=== PATIENT | female | born 1970 | race Caucasian/White ===

== ENCOUNTER → 2019-03-10 | Outpatient (REF) | payer OTHER ==
[2019-03-11 08:44] LABS: H PYLORI QUALITATIVE IgG NEGATIVE (NEGATIVE)
== END ==
LOC: M LAB REF 16:55
PROVIDERS: ATTEND Internal Medicine
DX: R10.13 Epigastric pain (principal)

== ENCOUNTER → 2021-07-14 | Outpatient (REF) | payer OTHER ==
[2021-07-14 12:22] LABS: PERCENT SATURATION 39.5 % (13.2-45.0)
== END ==
LOC: M LAB REF 10:58
PROVIDERS: ATTEND Internal Medicine
DX: K29.70 Gastritis, unspecified, without bleeding (principal)

== ENCOUNTER → 2024-11-23 | Outpatient (CLI) | payer BC | LOC: M RAD 15:20 | PROVIDERS: ATTEND Internal Medicine | DX: D25.2 Subserosal leiomyoma of uterus (principal); Z80.41 Family history of malignant neoplasm of ovary ==

== ENCOUNTER → 2025-03-08 | Outpatient (REF) | payer BC ==
[2025-03-10 17:04] LABS: PROTEIN CREATININE RATIO 118 mg/g creat (24-184); T PROTEIN CREATININE RATIO 0.118 (0.024-0.184); UPEP CREATININE 34 mg/dL (20-275); UPEP TOTAL PROTEIN 4 mg/dL (5-24)
[2025-03-10 17:20] LABS: PROTEIN, TOTAL SO 7.8 g/dL (6.1-8.1)
[2025-03-12 05:56] LABS: ALBUMIN SO 4.8 g/dL (3.8-4.8); ALPHA 1 GLOBULINS SO 0.3 g/dL (0.2-0.3); ALPHA 2 GLOBULINS SO 0.8 g/dL (0.5-0.9); BETA 2 GLOBULIN SO 0.4 g/dL (0.2-0.5); BETA GLOBULIN SO 0.4 g/dL (0.4-0.6); GAMMA GLOBULINS SO 1.0 g/dL (0.8-1.7)
[2025-03-12 07:15] LABS: UPEP ALBUMIN 42 %; URINE ALPHA 1 GLOBULIN 5 %; URINE ALPHA 2 GLOBULIN 16 %; URINE BETA GLOBULIN 9 %; URINE GAMMA GLOBULIN 28 %
== END ==
LOC: M LAB REF 14:48
PROVIDERS: ATTEND Internal Medicine
DX: R77.9 Abnormality of plasma protein, unspecified (principal)

== ENCOUNTER → 2025-03-18 | Outpatient (CLI) | payer BC ==
[~2025-03-18] MED LIST: GASTROGRAFIN SOLUTION 30 ML As Ordered ONE; ISOVUE-370 76% 100 ML VIAL As Ordered ONE
== END ==
LOC: M RAD 08:14
PROVIDERS: ATTEND Internal Medicine
DX: R10.812 Left upper quadrant abdominal tenderness (principal); R93.2 Abnormal findings on diagnostic imaging of liver and biliary tract
CPT/HCPCS: 74177; Q9963; Q9967

== ENCOUNTER → 2025-05-07 | Day surgery (SDC) | payer BC ==
[~2025-05-07] VITALS: Ht 160 cm; Wt 56.9 kg
[~2025-05-07] MED LIST changes: -GASTROGRAFIN SOLUTION 30 ML As Ordered ONE; -ISOVUE-370 76% 100 ML VIAL As Ordered ONE; +LIDOCAINE 2% 100 MG/5 ML SDV (FOR ANES.) As Ordered ONE; +MULTTAB61 PO; +OMEP40CA5 PO; +POTA10807 PO
[2025-05-07 12:12] VITALS: BP 106/57; O2SAT 100
== END | disposition home or self-care (01) ==
LOC: M OPP 10:46
PROVIDERS: ATTEND Surgery
DX: Z12.11 Encounter for screening for malignant neoplasm of colon (principal); K64.0 First degree hemorrhoids; K22.89 Other specified disease of esophagus; R93.3 Abnormal findings on diagnostic imaging of other parts of digestive tract; Z79.899 Other long term (current) drug therapy
CPT/HCPCS: 43239; 45378; 88305; J3010